=== PATIENT | female | born 1965 | race Caucasian/White ===

== ENCOUNTER 2018-02-28 15:03 | Emergency (ER) | payer MEDICAID, OTHER ==
[2018-02-28 15:03] VITALS: BMI 28.4
[2018-02-28 15:19] VITALS: TEMP 98.7; O2SAT 99
--- NOTE | 2018-02-28 15:58 | ED PDOC ---
Arrival/HPI - General Chief Complaint: Lower Extremity Problem/Injury Time Seen by Provider: 02/28/18 15:27 Historian: Patient - History of Present Illness Narrative History of Present Illness (Text): 02/28/18 15:54 53yr old female presents today with left knee and right great toe pain status post injury. Patient states last night she was getting off of the reclining sofa and did not push the leg part of the recliner in an she tripped falling forward injuring the right great toe and medial aspect of the left knee. Patient states she took Motrin for pain last night. Patient denies hitting her head. Denies headaches dizziness or weakness. Patient denies fevers or chills. No chest pain or shortness of breath. Patient is complaining of pain with ambulation. No medications have been taken for pain today. No other complaints. Time/Duration: Other (last night) Symptom Onset: Sudden Symptom Course: Unchanged Quality: Aching Severity Level: Mild Past Medical History - Provider Review Nursing Documentation Reviewed: Yes - Travel History Have you recently traveled outside [place] w/in the past 3 mons?: No - Infectious Disease Hx of Infectious Diseases: None - Psychiatric Hx Psychophysiologic Disorder: No Hx Substance Use: No Family/Social History - Physician Review Nursing Documentation Reviewed: Yes Family/Social History: Unknown Family HX Smoking Status: Unknown If Ever Smoked Hx Alcohol Use: No Hx Substance Use: No Allergies/Home Meds Allergies/Adverse Reactions: Allergies shrimp Allergy (Verified 02/28/18 15:14) RASH shrimp Allergy (Uncoded 02/28/18 15:14) RASH Home Medications: Home Meds Medication Instructions Recorded Confirmed No Known Home Med 02/28/18 02/28/18 Review of Systems - Review of Systems Constitutional: absent: Fatigue, Fevers Respiratory: absent: SOB, Cough Cardiovascular: absent: Chest Pain, Palpitations Gastrointestinal: absent: Abdominal Pain, Nausea, Vomiting Genitourinary Female: absent: Dysuria, Frequency Musculoskeletal: Arthralgias. absent: Back Pain, Neck Pain Skin: absent: Rash, Pruritis Neurological: absent: Headache, Dizziness Psychiatric: absent: Anxiety, Depression Physical Exam Vital Signs Reviewed: Yes Vital Signs Temp Pulse Resp BP Pulse Ox 02/28/18 15:15 98.7 F 76 16 118/80 99 Temperature: Afebrile Blood Pressure: Normal Pulse: Regular Respiratory Rate: Normal Appearance: Positive for: Well-Appearing, Non-Toxic, Comfortable Pain Distress: None Mental Status: Positive for: Alert and Oriented X 3 - Systems Exam Head: Present: Atraumatic Neck: Present: Normal Range of Motion Respiratory/Chest: Present: Clear to Auscultation Cardiovascular: Present: Regular Rate and Rhythm Upper Extremity: Present: Normal ROM Lower Extremity: Present: Normal Inspection, NORMAL PULSES, Normal ROM, Tenderness (leftknee; + ttp over the medial aspect of the knee; no edema, no erythema, no ecchymosis; sensation and distal pulses. right great toe; + ttp over dorsal aspect of toe; minimal edema, no ecchymosis; cap refill <2. no dorsal foot tenderness. ), Neurovascularly Intact, Capillary Refill < 2 s. No: CALF TENDERNESS, Swelling Neurological: Present: GCS=15, Speech Normal Skin: Present: Warm, Dry, Normal Color Psychiatric: Present: Alert, Oriented x 3 Medical Decision Making ED Course and Treatment: 02/28/18 16:05 Patient nontoxic well-appearing in no distress with stable vital signs X-rays of the left knee; no fracture xray of right great toe; no fracture tylenol PO ; pt is fasting; states she cant take medication until after sunset. Patient placed in knee immobilizer. Crutches given for ambulation I discussed all results with patient advised to followup with the orthopedist for the next 2 days. Return if symptoms worsen persist or new symptoms develop i advised the patient that although the xrays show no fracture; there is still a possibility for ligamentous or tendon injury the patient must see the orthopedist for further evaluation. Patient verbalizes understanding of discharge instructions and need for immediate followup. all aspects of this case were discussed the attending of record. Impression: knee pain Motrin every 6 hours as needed for pain Rest, ice, compression, elevation Use crutches for ambulation Followup with the orthopedist within the next 2 days Followup with primary care physician within the next 2 days Return if symptoms worsen persist or if new symptoms develop - RAD Interpretation Radiology Orders: 02/28/18 15:50 FOOT RIGHT GREAT TOE ROUTINE [RAD] Stat KNEE WITH PATELLA LEFT 3 VIEW [RAD] Stat - Medication Orders Current Medication Orders: Discontinued Medications Acetaminophen (Tylenol 325mg Tab) 975 mg PO STAT STA Stop: 02/28/18 15:52 Disposition/Present on Arrival - Present on Arrival Any Indicators Present on Arrival: No History of DVT/PE: No History of Uncontrolled Diabetes: No Urinary Catheter: No History of Decub. Ulcer: No History Surgical Site Infection Following: None - Disposition Have Diagnosis and Disposition been Completed?: Yes Diagnosis: Knee pain, Toe contusion Disposition: HOME/ ROUTINE Disposition Time: 16:50 Patient Plan: Discharge Condition: GOOD Discharge Instructions (ExitCare): Knee Pain, Contusion (DC) Additional Instructions: Motrin every 6 hours as needed for pain Rest, ice, compression, elevation Use crutches for ambulation Followup with the orthopedist within the next 2 days Followup with primary care physician within the next 2 days Return if symptoms worsen persist or if new symptoms develop Referrals: Julius Reyna MD [Staff Provider] - Follow up with primary Sheree Eaton MD [Staff Provider] - Follow up with primary [facility] [Outside] - Follow up with primary [facility] [place] [Outside] - Follow up with primary [facility] [place] - Follow up with primary Forms: [employer] (Montenegrin), WORK NOTE
[2018-02-28 17:30] VITALS: BP 122/78; PULSE 74; RESP 17
--- NOTE | 2018-02-28 19:34 | RAD ---
PROCEDURE: Radiographs of the right great toe. TECHNIQUE:: AP radiograph of the right foot, with oblique and lateral view of the right great toe. COMPARISON: None. FINDINGS: BONES: No acute fracture or destructive bony lesion identified. JOINTS: Normal. SOFT TISSUES: Normal. OTHER FINDINGS: None. IMPRESSION: Normal right great toe radiographs.
--- NOTE | 2018-02-28 19:35 | RAD ---
PROCEDURE: Left Knee Radiographs. HISTORY: Pain. COMPARISON: None. FINDINGS: BONES: No acute fracture or destructive bony lesion identified. JOINTS: Medial and patellofemoral joint space narrowing is appreciate with articular cortical sclerosis compatible with degenerative joint disease, bicompartmental. No subluxation or dislocation identified. JOINT EFFUSION: None. OTHER FINDINGS: None. IMPRESSION: Bicompartmental [id number] osteoarthritis. No acute fracture, subluxation or dislocation identified.
== END 2018-02-28 17:30 | disposition home or self-care (01) ==
LOC: ED 15:03
DX: S90.111A Contusion of right great toe without damage to nail, initial encounter (principal); W01.0XXA Fall on same level from slipping, tripping and stumbling without subsequent striking against object, initial encounter; Y92.9 Unspecified place or not applicable; M25.562 Pain in left knee